=== PATIENT | male | born 1960 | race African-American/Black ===

== ENCOUNTER 2017-11-27 23:36 | Emergency (ER) | payer SELFPAY ==
[~2017-11-27] VITALS: Ht 172.7 cm; Wt 82.0 kg
[2017-11-28 00:13] VITALS: BP 136/88
== END 2017-11-28 00:14 | disposition home or self-care (01) ==
LOC: ER 23:36
DX: F10.229 Alcohol dependence with intoxication, unspecified (principal); Y90.9 Presence of alcohol in blood, level not specified; R03.0 Elevated blood-pressure reading, without diagnosis of hypertension; F17.200 Nicotine dependence, unspecified, uncomplicated
CPT/HCPCS: 80053; 99283; G0482

== ENCOUNTER 2020-02-23 10:29 | Emergency (ER) | payer MEDICAID ==
[~2020-02-23] VITALS: Ht 177.8 cm; Wt 82.0 kg
[2020-02-23 10:45] VITALS: BP 110/66
[2020-02-23] MEDS ORDERED: IBUPROFEN 600MG TABLET PO ONE (10:45)
== END 2020-02-23 12:31 | disposition home or self-care (01) ==
LOC: ER 10:48
DX: S90.31XA Contusion of right foot, initial encounter (principal); X58.XXXA Exposure to other specified factors, initial encounter; Y93.89 Activity, other specified; Y92.89 Other specified places as the place of occurrence of the external cause; R03.0 Elevated blood-pressure reading, without diagnosis of hypertension
CPT/HCPCS: 73630; 99283; Z7610

== ENCOUNTER 2022-11-17 20:03 | Emergency (ER) | payer MEDICAID, OTHER ==
[~2022-11-17] VITALS: Ht 167.6 cm; Wt 84.0 kg
[2022-11-17 20:05] VITALS: BP 172/72; O2SAT 99
[2022-11-17] MEDS ORDERED: ACETAMINOPHEN 325MG TABLET PO ONE (21:15)
[2022-11-17 22:48] VITALS: PULSE 85; RESP 16; TEMP 98.5
== END 2022-11-17 22:49 | disposition home or self-care (01) ==
LOC: ER 20:03
DX: S09.90XA Unspecified injury of head, initial encounter (principal); W18.39XA Other fall on same level, initial encounter; Y93.89 Activity, other specified; Y92.89 Other specified places as the place of occurrence of the external cause; Y99.8 Other external cause status
CPT/HCPCS: 99284

== ENCOUNTER 2023-03-17 07:01 | Emergency (ER) | payer OTHER ==
[~2023-03-17] VITALS: Ht 172.7 cm; Wt 83.0 kg
[2023-03-17 07:02] VITALS: O2SAT 98
[2023-03-17 07:56] LABS: BASOPHILS % 0.7 % (0.0-2.0); EOSINOPHILS % 2.7 % (0.0-5.0); HEMATOCRIT. 27.1 % (42.0-52.0); HEMOGLOBIN. 8.5 g/dL (14.0-18.0); LYMPHOCYTES % 28.9 % (20.0-50.0); MEAN CORPUSCULAR HEMOGLOBIN 29.1 pg (28.0-32.0); MEAN CORPUSCULAR HGB CONC 31.5 g/dL (31.0-37.0); MEAN CORPUSCULAR VOLUME 92.5 fL (80.0-94.0); MEAN PLATELET VOLUME 6.1 fl (7.4-10.4); MONOCYTES % 6.2 % (2.0-8.0); NEUTROPHILS % 61.5 % (40.0-76.0); PLATELET 759 x1000/uL (130-400); RED BLOOD CELL COUNT 2.93 mill/uL (4.7-6.1); RED CELL DISTRIBUTION WIDTH 17.3 % (11.6-14.6); WHITE BLOOD COUNT 6.9 x1000/uL (4.5-11.0)
[2023-03-17 08:14] LABS: CARBON DIOXIDE 24 mEq/L (21-32); CHLORIDE 105 mEq/L (98-107); CREATININE 0.9 mg/dL (0.6-1.3); GLUCOSE 79 mg/dL (70-105); POTASSIUM 3.7 mEq/L (3.5-5.1); SODIUM 137 mEq/L (136-145); UREA NITROGEN BLOOD 9 mg/dL (9-23)
[2023-03-17 08:15] LABS: ALANINE AMINOTRANSFERASE 10 IU/L (10-49); ALBUMIN 3.9 g/dL (3.2-4.8); ASPARTATE AMINOTRANSFERASE 17 IU/L (<34); BILIRUBIN TOTAL 0.2 mg/dL (0.1-1.0); ETHANOL BLOOD 43 mg/dL (<10); PROTEIN TOTAL 6.7 g/dL (6.0-8.3)
[2023-03-17] MEDS ORDERED: SODIUM CHLORIDE 0.9% 1,000 ML IV ONE (10:30)
[2023-03-17 10:58] LABS: BASOPHILS % 1.4 % (0.0-2.0); EOSINOPHILS % 4.3 % (0.0-5.0); HEMATOCRIT. 25.2 % (42.0-52.0); LYMPHOCYTES % 30.8 % (20.0-50.0); MEAN CORPUSCULAR HGB CONC 31.7 g/dL (31.0-37.0); MEAN CORPUSCULAR VOLUME 91.7 fL (80.0-94.0); MONOCYTES % 7.6 % (2.0-8.0); NEUTROPHILS % 55.9 % (40.0-76.0); PLATELET 717 x1000/uL (130-400); RED BLOOD CELL COUNT 2.74 mill/uL (4.7-6.1); RED CELL DISTRIBUTION WIDTH 16.8 % (11.6-14.6); WHITE BLOOD COUNT 7.7 x1000/uL (4.5-11.0)
[2023-03-17 13:56] VITALS: BP 148/90; PULSE 72; RESP 20; TEMP 98.9
== END 2023-03-17 14:16 | disposition short-term general hospital (02) ==
LOC: ER 07:56
DX: K92.2 Gastrointestinal hemorrhage, unspecified (principal); D64.9 Anemia, unspecified
CPT/HCPCS: 80053; 80320; 85025; 86850; 86900; 86901; 36415; 70450; 93005; 99285; J7030; G0480